=== PATIENT | male | born 2000 | race African-American/Black ===

== ENCOUNTER 2023-03-19 21:53 | Emergency (ER) | payer OTHER ==
[~2023-03-19] VITALS: Ht 175.3 cm; Wt 76.4 kg
[2023-03-19] MEDS ORDERED: fentaNYL 100 MCG/2 ML INJECTION IV ONE (22:45)
[2023-03-19] MEDS ORDERED: NS 1,000 ML IV SCH (22:50)
[2023-03-19] MEDS ORDERED: OXYCODONE/APAP 5MG/325MG(HOME DOSE PACK) PO ONE (23:25)
[2023-03-19] MEDS ORDERED: PERC5TAB12 PO (23:40)
[2023-03-20 00:09] VITALS: BP 132/74; TEMP 98.8; O2SAT 98
== END 2023-03-20 00:12 | disposition home or self-care (01) ==
LOC: M ED 21:53
DX: S43.014A Anterior dislocation of right humerus, initial encounter (principal); Y92.9 Unspecified place or not applicable; Y93.71 Activity, boxing; Y99.9 Unspecified external cause status; Z91.010 Allergy to peanuts; Z79.899 Other long term (current) drug therapy
CPT/HCPCS: 23650; 73020; 73030; 93041; 94760; 99284; J3010